=== PATIENT | female | born 1995 | race Two or more races ===

== ENCOUNTER 2017-10-03 20:26 | Outpatient (CLI) | payer SELFPAY ==
[~2017-10-03] VITALS: Ht 160 cm; Wt 90.5 kg
[2017-10-03 20:49] VITALS: BP 106/71
[2017-10-03 21:32] LABS: AMNI OBC PASS; AMNISURE NEGATIVE (NEGATIVE)
[2017-10-03] MEDS ORDERED: PREN-59 PO (21:36)
== END 2017-10-03 21:50 | disposition home or self-care (01) ==
LOC: LDOP 20:26
PROVIDERS: ATTEND Obstetrics & Gynecology
DX: O42.913 Preterm premature rupture of membranes, unspecified as to length of time between rupture and onset of labor, third trimester (principal); Z3A.32 32 weeks gestation of pregnancy
CPT/HCPCS: 59025; 84112; 99211; G0463

== ENCOUNTER 2017-10-18 15:56 | Outpatient (CLI) | payer SELFPAY ==
[~2017-10-18] VITALS: Ht 160 cm; Wt 90.0 kg
[~2017-10-18 15:56] MED LIST: PREN-59 PO
[2017-10-18 16:20] VITALS: BP 111/63
== END 2017-10-18 17:00 | disposition home or self-care (01) ==
LOC: LDOP 15:56
PROVIDERS: ATTEND Obstetrics & Gynecology
DX: O26.892 Other specified pregnancy related conditions, second trimester (principal); R10.9 Unspecified abdominal pain
CPT/HCPCS: 59025; 99211; G0463